=== PATIENT | female | born 1990 | race Caucasian/White ===

== ENCOUNTER 2017-11-12 19:28 | Emergency (ER) | payer SELFPAY ==
[~2017-11-12] VITALS: Ht 152.4 cm; Wt 75.3 kg
[2017-11-12 19:37] VITALS: Ht 152.4 cm; Wt 75.3 kg
[2017-11-12 21:39] VITALS: BP 139/90
== END 2017-11-12 21:39 | disposition home or self-care (01) ==
LOC: ED 19:28
DX: H16.001 Unspecified corneal ulcer, right eye (principal)
CPT/HCPCS: 90715